=== PATIENT | female | born 1985 | race Caucasian/White ===

== ENCOUNTER 2018-11-23 11:03 | Inpatient (IN) | payer OTHER ==
[~2018-11-23] VITALS: Ht 167.6 cm; Wt 90.7 kg
[2018-11-23] MEDS ORDERED: SYNTHROID150 MCG PO (11:45)
== END 2018-11-25 12:28 | disposition home or self-care (01) | DRG 807 ==
LOC: LDR 11:03 → SURG-SUITE 11:03
PROVIDERS: ADMIT Obstetrics & Gynecology Maternal & Fetal Medicine
PROC: 10E0XZZ Delivery of Products of Conception, External Approach (ICD-10-PCS; principal; 2018-11-23)
PROC: 0HQ9XZZ Repair Perineum Skin, External Approach (ICD-10-PCS; 2018-11-23)
PROC: 4A0HXFZ Measurement of Products of Conception, Cardiac Rhythm, External Approach (ICD-10-PCS; 2018-11-23)
DX: O70.0 First degree perineal laceration during delivery (principal); Z37.0 Single live birth; Z3A.38 38 weeks gestation of pregnancy